=== PATIENT | female | born 1980 | race African-American/Black ===

== ENCOUNTER 2016-11-02 01:42 | Emergency (ER) | payer BC ==
[2016-11-02 01:54] VITALS: BP 123/84; PULSE 82; RESP 18; TEMP 98.6
[2016-11-02] MEDS ORDERED: AMOXICILLIN 500 MG CAP PO STA (02:11)
[2016-11-02] MEDS ORDERED: CIPROFLOXACIN-DEXAMETH 0.3-0.1% DROPS 7.5 ML BTL RIGHT EAR STA (02:12)
--- NOTE | 2016-11-02 02:19 | ED ---
ENT HPI - General Chief complaint: ENT Stated complaint: Earache Time Seen by Provider: 11/02/16 01:57 Source: patient, RN notes reviewed Mode of arrival: ambulatory Limitations: no limitations - History of Present Illness Initial comments: Patient is a 36-year-old female since emergency room for evaluation of right ear pain. Patient has been having right ear pain and fullness feeling for the past 2 days. Patient states when she was getting out of the shower today she bent forward and felt a loud pop in her right ear associated with extreme pain. Patient states she went to bed and felt something leaking down from her ear. Patient states she turned the light she noticed it was blood. Patient states at this point she thought she should have her right ear evaluated. Patient states she's having constant 3 out of 10 pain in her right ear. Patient states that she still having fullness in her right ear with decreased hearing and ringing. Patient denies fevers or chills. Patient denies trauma to her ear. Patient denies neck pain. - Related Data Home Medications Medication Instructions Recorded Confirmed HYDROcodone/APAP 10-325MG [[place] 1 tab PO Q8H PRN 11/02/16 11/02/16 10-325] Ibuprofen [Motrin] 800 mg PO BID PRN 11/02/16 11/02/16 Previous Rx's Medication Instructions Recorded Amoxicillin 500 mg PO Q8H 5 Days 11/02/16 Ciprofloxacin-Dexameth [Ciprodex 4 drops RIGHT EAR BID 10 Days 11/02/16 Otic Susp] Allergies Allergy/AdvReac Type Severity Reaction Status Date / Time paper tape Allergy Rash/Hives Uncoded 11/02/16 01:53 Review of Systems ROS Statement: Those systems with pertinent positive or pertinent negative responses have been documented in the HPI. ROS Other: All systems not noted in ROS Statement are negative. Past Medical History Past Medical History: No Reported History Additional Past Medical History / Comment(s): 05/06/15 ADMITTED TO [facility] WITH C/O LT SIDED FACIAL SWELLLING. OTHER HX: PAST ABCESS TOOTH, 2007 RT SIDED FACIAL SWELLING, pleurisy History of Any Multi-Drug Resistant Organisms: None Reported Past Surgical History: Orthopedic Surgery, Tubal Ligation Additional Past Surgical History / Comment(s): rt knee sx for fc knee cap Past Anesthesia/Blood Transfusion Reactions: Motion Sickness Past Psychological History: No Psychological Hx Reported Smoking Status: Current every day smoker Past Alcohol Use History: Occasional Additional Past Alcohol Use History / Comment(s): started smoking at age 18 , smoked 1/2 ppd, smoking cessation booklet given to pt. Past Drug Use History: None Reported - Past Family History Father Family Medical History: No Reported History Mother Family Medical History: Cancer, Hypertension Additional Family Medical History / Comment(s): breast cancer General Exam - General Exam Comments Initial Comments: Sitting in exam room in no acute distress. Limitations: no limitations General appearance: alert, in no apparent distress Head exam: Present: atraumatic, normocephalic, normal inspection Eye exam: Present: normal appearance Expanded Ear exam: Present: normal external inspection TM/Canal exam: Erythema: Right TM, Canal Discharge: Right TM, Canal Tenderness: Right TM Mouth exam: Present: normal external inspection Neck exam: Present: normal inspection, full ROM. Absent: tenderness, lymphadenopathy Respiratory exam: Absent: respiratory distress Extremities exam: Present: normal inspection Back exam: Present: normal inspection Neurological exam: Present: alert, oriented X3, CN II-XII intact, normal gait Psychiatric exam: Present: normal affect, normal mood Skin exam: Present: warm, dry, intact, normal color. Absent: rash Course Vital Signs 11/02/16 01:50 Temperature 98.6 F Pulse Rate 82 Respiratory 18 Rate Blood Pressure 123/84 O2 Sat by Pulse 98 Oximetry Medical Decision Making - Medical Decision Making Patient is a 36-year-old female presents to the emergency room for evaluation of right ear pain and drainage. Right ear examined. Tympanic membrane appears to be intact. There is some swelling and erythema of the ear canal. Because of patient's symptoms of popping and blood draining from her ear, will place patient on oral antibiotics and Ciprodex eardrops. Advised patient to follow- up with her primary care provider in 24-48 hours for reevaluation of her ear. Patient states she understands everything that was discussed with her. Return parameters discussed. Case discussed with Dr. Berry. Disposition Clinical Impression: Otitis externa Disposition: HOME SELF-CARE Condition: Good Instructions: Otitis Externa (ED) Additional Instructions: Take medications as directed. Please follow up with primary care provider in 1- 2 days for reevaluation. If any new symptom arises, symptoms worsen or fever develops, return to ER as soon as possible. Prescriptions: Amoxicillin 500 mg PO Q8H 5 Days Ciprofloxacin-Dexameth [Ciprodex Otic Susp] 4 drops RIGHT EAR BID 10 Days Referrals: Yung Cotto MD [Primary Care Provider] - 1-2 days Time of Disposition: 02:16
== END 2016-11-02 02:30 | disposition home or self-care (01) ==
LOC: EC 01:42
DX: H60.91 Unspecified otitis externa, right ear (principal); F17.200 Nicotine dependence, unspecified, uncomplicated; Z91.09 Other allergy status, other than to drugs and biological substances
CPT/HCPCS: 99282

== ENCOUNTER 2016-11-23 19:06 | Emergency (ER) | payer SELFPAY ==
[2016-11-23 19:11] VITALS: RESP 18
[2016-11-23] MEDS ORDERED: SODIUM CHLORIDE 0.9% 1,000 ML IV ONE (19:56)
[2016-11-23] MEDS ORDERED: ONDANSETRON 4 MG/2 ML VIAL IVP STA ×2 (19:56→22:06)
[2016-11-23] MEDS ORDERED: HYDROmorphone 1 MG/ML 1 ML SYRINGE IVP STA ×2 (19:57→23:15)
--- NOTE | 2016-11-23 20:00 | ED ---
Abdominal Pain HPI - General Chief Complaint: Abdominal Pain Stated Complaint: Abdominal Pain Time Seen by Provider: 11/23/16 19:44 Source: patient, RN notes reviewed Mode of arrival: ambulatory Limitations: no limitations - History of Present Illness Initial Comments: Patient is a 36-year-old female presents to the emergency room for reevaluation abdominal pain, nausea and vomiting. Patient states around 10:00 this morning she began having right upper quadrant and right lower quadrant abdominal pain. Patient states she went to have lunch and she vomited up all of her food secondary to pain. Patient states pain has been getting worse throughout the day so she thought she should come in to be evaluated. Patient states she's had tubal ligation. Patient denies any other abdominal surgeries. Patient denies fevers or chills. Patient is still feeling very nauseous. Patient states having 9 out of 10 constant throbbing pain. Patient states the pain is worse with movement. Patient denies pain or burning during urination, trouble urinating or blood in urine. Patient states the pain does radiate from the right side of her abdomen to her back. Patient denies chest pain or shortness of breath. Patient denies headache or dizziness. - Related Data Previous Rx's Medication Instructions Recorded HYDROcodone/APAP 5-325MG [[place] 1 tab PO Q6HR PRN #10 tab 11/23/16 5-325] Ibuprofen [Motrin] 800 mg PO Q6HR PRN #20 tab 11/23/16 Ondansetron Odt [Zofran Odt] 4 mg PO Q8HR PRN #12 tab 11/23/16 Allergies Allergy/AdvReac Type Severity Reaction Status Date / Time paper tape Allergy Rash/Hives Uncoded 11/23/16 19:11 Review of Systems ROS Statement: Those systems with pertinent positive or pertinent negative responses have been documented in the HPI. ROS Other: All systems not noted in ROS Statement are negative. Past Medical History Past Medical History: No Reported History Additional Past Medical History / Comment(s): pleurisy History of Any Multi-Drug Resistant Organisms: None Reported Past Surgical History: Orthopedic Surgery, Tubal Ligation Additional Past Surgical History / Comment(s): rt knee sx for fc knee cap Past Anesthesia/Blood Transfusion Reactions: Motion Sickness Past Psychological History: No Psychological Hx Reported Smoking Status: Current every day smoker Past Alcohol Use History: Occasional Additional Past Alcohol Use History / Comment(s): started smoking at age 18 , smoked 1/2 ppd, smoking cessation booklet given to pt. Past Drug Use History: None Reported - Past Family History Father Family Medical History: No Reported History Mother Family Medical History: Cancer, Hypertension Additional Family Medical History / Comment(s): breast cancer General Exam - General Exam Comments Initial Comments: Laying in exam room, no acute distress. Limitations: no limitations General appearance: alert, in no apparent distress Head exam: Present: atraumatic, normocephalic, normal inspection Eye exam: Present: normal appearance Pupils: Present: normal accommodation ENT exam: Present: normal exam Neck exam: Present: normal inspection, full ROM. Absent: tenderness, lymphadenopathy Respiratory exam: Present: normal lung sounds bilaterally. Absent: respiratory distress Cardiovascular Exam: Present: regular rate, normal rhythm, normal heart sounds GI/Abdominal exam: Present: soft, tenderness (RUQ, RLQ), normal bowel sounds. Absent: distended, guarding, rebound, rigid Extremities exam: Present: normal inspection Back exam: Present: normal inspection Neurological exam: Present: alert, oriented X3, CN II-XII intact, normal gait Psychiatric exam: Present: normal affect, normal mood Skin exam: Present: warm, dry, intact, normal color. Absent: rash Course Vital Signs 11/23/16 11/23/16 11/23/16 19:09 22:35 23:28 Temperature 98.4 F 98.2 F 98.5 F Pulse Rate 86 55 L 56 L Respiratory 18 18 18 Rate Blood Pressure 134/81 137/60 110/75 O2 Sat by Pulse 100 98 99 Oximetry Medical Decision Making - Medical Decision Making Patient is a 36-year-old female presents emergency room for evaluation of abdominal pain. Labs show nose concerning findings. Ultrasound significant for bilateral ovarian cysts. CT negative for signs of appendicitis. Discussed results with patient. Agreed to send patient home with pain medications as needed and to follow-up with her primary care provider for further evaluation. Patient states she understands everything that was discussed with her. Return parameters discussed. Case discussed with Dr. Acosta. - Lab Data Result diagrams: 11/23/16 19:47 11/23/16 19:47 Lab Results 11/23/16 11/23/16 11/23/16 Range/Units 19:47 19:47 19:47 WBC 9.7 (3.8-10.6) k/uL RBC 3.85 (3.80-5.40) m/uL Hgb 11.4 (11.4-16.0) gm/dL Hct 35.6 (34.0-46.0) % MCV 92.4 (80.0-100.0) fL MCH 29.5 (25.0-35.0) pg MCHC 32.0 (31.0-37.0) g/dL RDW 16.1 H (11.5-15.5) % Plt Count 385 (150-450) k/uL Neutrophils % 72 % Lymphocytes % 18 % Monocytes % 5 % Eosinophils % 1 % Basophils % 2 % Neutrophils # 7.0 (1.3-7.7) k/uL Lymphocytes # 1.8 (1.0-4.8) k/uL Monocytes # 0.4 (0-1.0) k/uL Eosinophils # 0.1 (0-0.7) k/uL Basophils # 0.2 (0-0.2) k/uL Hypochromasia Slight Anisocytosis Slight Sodium 146 H (137-145) mmol/L Potassium 3.9 (3.5-5.1) mmol/L Chloride 108 H (98-107) mmol/L Carbon Dioxide 25 (22-30) mmol/L Anion Gap 13 mmol/L BUN 14 (7-17) mg/dL Creatinine 0.66 (0.52-1.04) mg/dL Est GFR (MDRD) Af Amer >60 (>60 ml/min/1.73 sqM) Est GFR (MDRD) Non-Af >60 (>60 ml/min/1.73 sqM) Glucose 99 (74-99) mg/dL Calcium 9.5 (8.4-10.2) mg/dL Magnesium 1.9 (1.6-2.3) mg/dL Total Bilirubin 0.5 (0.2-1.3) mg/dL AST 14 (14-36) U/L ALT 17 (9-52) U/L Alkaline Phosphatase 47 (38-126) U/L Total Protein 7.3 (6.3-8.2) g/dL Albumin 4.3 (3.5-5.0) g/dL Amylase 68 (30-110) U/L Lipase 95 (23-300) U/L Urine Color Urine Appearance (Clear) Urine pH (5.0-8.0) Ur Specific [place] (1.001-1.035) Urine Protein (Negative) Urine Glucose (UA) (Negative) Urine Ketones (Negative) Urine Blood (Negative) Urine Nitrate (Negative) Urine Bilirubin (Negative) Urine Urobilinogen (<2.0) mg/dL Ur Leukocyte Esterase (Negative) Urine WBC (0-5) /hpf Ur Squamous Epith Cells (0-4) /hpf Amorphous Sediment (None) /hpf Urine Mucus (None) /hpf Urine Sperm (None) /hpf Urine HCG, Qual Not Detected (Not Detectd) 11/23/16 Range/Units 19:47 WBC (3.8-10.6) k/uL RBC (3.80-5.40) m/uL Hgb (11.4-16.0) gm/dL Hct (34.0-46.0) % MCV (80.0-100.0) fL MCH (25.0-35.0) pg MCHC (31.0-37.0) g/dL RDW (11.5-15.5) % Plt Count (150-450) k/uL Neutrophils % % Lymphocytes % % Monocytes % % Eosinophils % % Basophils % % Neutrophils # (1.3-7.7) k/uL Lymphocytes # (1.0-4.8) k/uL Monocytes # (0-1.0) k/uL Eosinophils # (0-0.7) k/uL Basophils # (0-0.2) k/uL Hypochromasia Anisocytosis Sodium (137-145) mmol/L Potassium (3.5-5.1) mmol/L Chloride (98-107) mmol/L Carbon Dioxide (22-30) mmol/L Anion Gap mmol/L BUN (7-17) mg/dL Creatinine (0.52-1.04) mg/dL Est GFR (MDRD) Af Amer (>60 ml/min/1.73 sqM) Est GFR (MDRD) Non-Af (>60 ml/min/1.73 sqM) Glucose (74-99) mg/dL Calcium (8.4-10.2) mg/dL Magnesium (1.6-2.3) mg/dL Total Bilirubin (0.2-1.3) mg/dL AST (14-36) U/L ALT (9-52) U/L Alkaline Phosphatase (38-126) U/L Total Protein (6.3-8.2) g/dL Albumin (3.5-5.0) g/dL Amylase (30-110) U/L Lipase (23-300) U/L Urine Color Yellow Urine Appearance Cloudy H (Clear) Urine pH 6.0 (5.0-8.0) Ur Specific [place] 1.022 (1.001-1.035) Urine Protein Trace H (Negative) Urine Glucose (UA) Negative (Negative) Urine Ketones Negative (Negative) Urine Blood Negative (Negative) Urine Nitrate Negative (Negative) Urine Bilirubin Negative (Negative) Urine Urobilinogen 2.0 (<2.0) mg/dL Ur Leukocyte Esterase Negative (Negative) Urine WBC 3 (0-5) /hpf Ur Squamous Epith Cells 18 H (0-4) /hpf Amorphous Sediment Rare H (None) /hpf Urine Mucus Occasional H (None) /hpf Urine Sperm Few H (None) /hpf Urine HCG, Qual (Not Detectd) - Radiology Data Radiology results: report reviewed, image reviewed Disposition Clinical Impression: Ovarian cyst, Abdominal pain Disposition: HOME SELF-CARE Condition: Good Instructions: Ovarian Cyst (ED) Additional Instructions: Take medications as needed. Please follow up with primary care provider in 24- 48 hours for reevaluation. If any new symptom arises or symptoms worsen, return to ER as soon as possible. Prescriptions: HYDROcodone/APAP 5-325MG [[place] 5-325] 1 tab PO Q6HR PRN #10 tab PRN Reason: Pain Ibuprofen [Motrin] 800 mg PO Q6HR PRN #20 tab PRN Reason: Pain Ondansetron Odt [Zofran Odt] 4 mg PO Q8HR PRN #12 tab PRN Reason: Nausea Referrals: Yung Cotto MD [Primary Care Provider] - 1-2 days Time of Disposition: 23:10
[2016-11-23 20:13] LABS: Anisocytosis Slight; Basophils # (A) 0.2 k/uL (0-0.2); Basophils % (A) 2 %; CH 29.1; CHCM 31.7; Eosinophils # (A) 0.1 k/uL (0-0.7); Eosinophils % (A) 1 %; HCT 35.6 % (34.0-46.0); HDW 2.67; HGB 11.4 gm/dL (11.4-16.0); Hypochromasia Slight; Luc # (Auto) 0.21; Luc % (Auto) 2; Lymphocytes # (A) 1.8 k/uL (1.0-4.8); Lymphocytes % (A) 18 %; MCH 29.5 pg (25.0-35.0); MCV 92.4 fL (80.0-100.0); Mean Platelet Volume 7.4; Monocytes # (A) 0.4 k/uL (0-1.0); Monocytes % (A) 5 %; Neutrophils % (A) 72 %; RBC 3.85 m/uL (3.80-5.40); RDW 16.1 % (11.5-15.5); WBC 9.7 k/uL (3.8-10.6); WBC (Perox) 9.71
[2016-11-23 20:19] LABS: Amorphous Sediment,Urine Rare /hpf; Appearance,Urine Cloudy (Clear); Bilirubin,Urine Negative (Negative); Glucose,Urine (UA) Negative (Negative); Ketones,Urine Negative (Negative); Leukocyte Esterase,Urine Negative (Negative); Mucus,Urine Occasional /hpf; Nitrite,Urine Negative (Negative); Particle Count 5864; Protein,Urine Trace (Negative); Specific Gravity,Urine 1.022 (1.001-1.035); Sperm,Urine Few /hpf; Squamous Epithelial Cell,Urine 18 /hpf (0-4); UA Billing (MACRO vs. MICRO) MICRO; WBC,Urine 3 /hpf (0-5)
[2016-11-23 20:23] LABS: ALT 17 U/L (9-52); AST 14 U/L (14-36); Alkaline Phosphatase 47 U/L (38-126); Amylase 68 U/L (30-110); Anion Gap 13 mmol/L; Blood Urea Nitrogen 14 mg/dL (7-17); Calcium 9.5 mg/dL (8.4-10.2); Carbon Dioxide 25 mmol/L (22-30); Chloride 108 mmol/L (98-107); Glucose 99 mg/dL (74-99); Magnesium 1.9 mg/dL (1.6-2.3); Non-African American GFR(MDRD) >60 (>60 ml/min/1.73 sqM); Potassium 3.9 mmol/L (3.5-5.1); Sodium 146 mmol/L (137-145); Total Bilirubin 0.5 mg/dL (0.2-1.3); Total Protein 7.3 g/dL (6.3-8.2)
--- NOTE | 2016-11-23 20:53 | XR ---
EXAMINATION TYPE: XR KUB DATE OF EXAM: 11/23/2016 8:35 PM COMPARISON: NONE HISTORY: Abdominal pain TECHNIQUE: 2 views FINDINGS: Bowel gas pattern is normal. There is no sign of intestinal obstruction or pneumoperitoneum . Fecal pattern is normal. There are clips in the pelvis on the left side. There are no pathologic ca lcifications over the kidneys. Lung bases are clear. IMPRESSION: Nonacute abdomen.
--- NOTE | 2016-11-23 21:44 | US ---
EXAMINATION TYPE: US abdomen APPY DATE OF EXAM: 11/23/2016 9:25 PM COMPARISON: NONE CLINICAL HISTORY: Pain. APPENDIX AP Diameter (normal < 6mm): Not visualized on this exam Measured outer wall to outer wall. Is the appendix seen in its entirety from the proximal cecum to distal end: No TECHNOLOGIST IMPRESSION: Non-visualization of the appendix due to large amount of overlying bowel IMPRESSION: We did not demonstrate the appendix. No solid or cystic mass identified.
[2016-11-23] MEDS ORDERED: KETOROLAC 30 MG/ML 1 ML VIAL IVP STA (21:54)
--- NOTE | 2016-11-23 21:57 | US ---
EXAMINATION TYPE: US transvaginal DATE OF EXAM: 11/23/2016 9:38 PM COMPARISON: Prior US and CT in PACS CLINICAL HISTORY: Pain. RLQ pain TECHNIQUE: Transvaginal (TV) Date of LMP: 11/03/2016 EXAM MEASUREMENTS: Uterus: 10.4 x 4.8 x 5.6 cm Endometrial Stripe: 0.9 cm Right Ovary: 4.2 x 2.2 x 2.3 cm Left Ovary: 2.9 x 2.5 x 2.7 cm TECHNOLOGIST IMPRESSION: 1. Uterus: Tiny nabothian cyst visualized within cervix 2. Endometrium: wnl 3. Right Ovary: Complex cystic area visualized measuring 2.2 x 2.0 x 2.0 cm 4. Left Ovary: Complex cystic area visualized measuring 2.2 x 2.0 x 1.9 cm Spectral, color and waveform doppler imaging shows good arterial and venous flow within the ovaries ; there is no evidence for ovarian torsion. 5. Bilateral Adnexa: wnl 6. Posterior cul-de-sac: wnl There is normal arterial waveform in the origin arteries on the color Doppler images. IMPRESSION: Complex 2 cm ovarian cysts bilaterally. Normal uterus and endometrium.
[2016-11-23] MEDS ORDERED: RX INFO: IV CONTRAST WAS GIVEN 1 EACH MISC MISCELLANE PRN (22:04)
--- NOTE | 2016-11-23 22:36 | CT ---
EXAMINATION TYPE: CT abdomen pelvis w con DATE OF EXAM: 11/23/2016 10:27 PM COMPARISON: 05/01/2015 HISTORY: Right lower quadrant pain CT DLP: mGycm Automated exposure control for dose reduction was used. TECHNIQUE: Helical acquisition of images was performed from the lung bases through the pelvis. CONTRAST: Omnipaque 100 mL FINDINGS: Lung bases are clear. There is no pleural effusion. Heart size is normal. Liver spleen pancreas gallbladder appear normal. Bile ducts are not dilated. There is no adrenal mass . Kidneys show satisfactory contrast opacification. There is no hydronephrosis. There is no retroperi toneal adenopathy. There is no ascites. Bladder distends smoothly. There is no sign of a pelvic mass. There is no sign of appendicitis. Bony structures are intact. I see no intestinal wall thickening. T here are no dilated loops. IMPRESSION: NEGATIVE CT SCAN OF THE ABDOMEN AND PELVIS. NO CHANGE COMPARED TO OLD EXAM.
[2016-11-23 23:28] VITALS: BP 110/75; PULSE 56; TEMP 98.5
== END 2016-11-23 23:43 | disposition home or self-care (01) ==
LOC: EC 19:06
DX: N83.202 Unspecified ovarian cyst, left side (principal); N83.201 Unspecified ovarian cyst, right side; F17.200 Nicotine dependence, unspecified, uncomplicated; Z91.048 Other nonmedicinal substance allergy status
CPT/HCPCS: 99284 ×2; 96374 ×2; 96375 ×3; 96376 ×3; 96361 ×2; 36415; 80053; 82150; 83690; 83735; 85025; 81001; 81025; 74000; 93975; 76705; 76830; 74177; J2405; J1885; J1170; Q9967

== ENCOUNTER → 2017-01-28 | Outpatient (CLI) | payer SELFPAY ==
--- NOTE | 2017-01-29 12:41 | MM ---
Reason for exam: clinical finding. Last mammogram was performed 1 year and 8 months ago. History: Family history of breast cancer in maternal grandmother at age 60, breast cancer in maternal aunt at age 42, breast cancer in maternal aunt at age 50, and breast cancer in maternal cousin at age 35. Physical Findings: Nurse did not find any significant physical abnormalities on exam. MG Diagnostic Mammo w CAD AMPARO Bilateral CC and MLO view(s) were taken. XCCL view(s) were taken of the right breast. Prior study comparison: May 20, 2015, bilateral MG diagnostic mammo w CAD AMPARO. The breast tissue is heterogeneously dense. This may lower the sensitivity of mammography. These results were verbally communicated with the patient and result sheet given to the patient on 01/28/17. ASSESSMENT: Incomplete: need additional imaging evaluation, BI-RAD 0 RECOMMENDATION: Ultrasound of both breasts.
--- NOTE | 2017-01-29 12:46 | USB ---
Reason for exam: additional evaluation requested from abnormal screening. History: Family history of breast cancer in maternal grandmother at age 60, breast cancer in maternal aunt at age 42, breast cancer in maternal aunt at age 50, and breast cancer in maternal cousin at age 35. US Breast BILAT Left breast ultrasound includes all four quadrants, the retroareolar region and axilla. Finding demonstrates a 0.3 x 0.3 x 0.2cm oval lesion too small to characterize at 1 o'clock, a 0.5 x 0.3 x 0.2cm oval lesion too small to characterize at 3 o'clock and a 0.9 x 1.1 x 0.3cm oval, hypoechoic lesion at 5 o'clock for which a core biopsy is recommended. These results were verbally communicated with the patient and result sheet given to the patient on 01/28/17. ASSESSMENT: Suspicious, BI-RAD 4 RECOMMENDATION: Ultrasound core biopsy of the left breast. Called Dr. Cotto with mammographic findings and has scheduled an appointment for the patient for 03/03/17 at 2:[address] Watters. Biposy scheduled for 02/09/17 at 12:20. PRELIMINARY REPORT CALLED AND FAXED TO DR. WATTERS ON 01/29/17 AT 300/TP.
== END | disposition home or self-care (01) ==
LOC: RADMAMWWP 08:10
PROVIDERS: ATTEND Family Medicine
DX: N63 Unspecified lump in breast (principal); N64.4 Mastodynia; R92.8 Other abnormal and inconclusive findings on diagnostic imaging of breast
CPT/HCPCS: 76641; G0204

== ENCOUNTER → 2017-02-09 | Day surgery (SDC) | payer BC ==
[~2017-02-09] MED LIST: ALPRAZolam 0.25 MG TAB ONE; BACITRACIN OINT 1 EACH PACKET TOPICAL ONE; LIDOCAINE 1% INJ 10MG/ML (20 ML MDV) ONE
--- NOTE | 2017-02-09 15:24 | USB ---
EXAMINATION TYPE: US biopsy breast VAD LT DATE OF EXAM: 02/09/2017 12:52 PM CLINICAL HISTORY: R92.8 ABN MAMMOGRAM. TECHNIQUE: Ultrasound guided core biopsy of left breast. COMPARISON: Prior ultrasound breast 28 Jan 2017 FINDINGS: The procedure of ultrasound guided core biopsy was explained to the patient. Benefits, alternatives, and risks were discussed. An informed consent was then obtained. The patient was placed in supine positioning for imaging and for the procedure. The overlying skin was prepped and draped in usual sterile fashion. Lidocaine was used as anesthetic into the skin and subcutaneous tissue up to area of concern in the left breast. Under ultrasound guidance, a 13-gauge vacuum assisted core biopsy device was used to obtain 3 core samples. Following this, a biopsy clip was left in lesion. The patient tolerated the procedure well without any immediate complication. The patient was kept in the radiology department for short stay after the procedure and then discharged home in stable condition. Postprocedure digital mammogram was performed. Lesion was located 5:00 left breast IMPRESSION: Successful, uncomplicated ultrasound guided core biopsy of area of concern in the left breast, full pathology results to follow. Pathology Results: Benign BREAST, LEFT 5 O'CLOCK, CORE BIOPSY: FIBROCYSTIC CHANGES INCLUDING FIBROSIS, FIBROADENOMATOID HYPERPLASIA AND CYSTS. Recommendation Follow up mammogram of the left breast in 6 months. KAYLEEN
--- NOTE | 2017-02-10 08:55 | MM ---
Reason for exam: additional evaluation requested from abnormal screening. Last mammogram was performed less than 1 month ago. History: Family history of breast cancer in maternal grandmother at age 60, breast cancer in maternal aunt at age 42, breast cancer in maternal aunt at age 50, and breast cancer in maternal cousin at age 35. MG Diagnostic Mammo LT Wo CAD CC and LM view(s) were taken of the left breast. Prior study comparison: January 28, 2017, bilateral MG diagnostic mammo w CAD AMPARO. May 20, 2015, bilateral MG diagnostic mammo w CAD AMPARO. ASSESSMENT: Post procedure mammogram for marker placement RECOMMENDATION: Ultrasound of the left breast in 6 months. PENDING PATHOLOGY RESULTS.
== END ==
LOC: RADUSWWP 11:29
PROVIDERS: ATTEND Surgery
DX: N60.12 Diffuse cystic mastopathy of left breast (principal); N62 Hypertrophy of breast; R92.8 Other abnormal and inconclusive findings on diagnostic imaging of breast; Z80.3 Family history of malignant neoplasm of breast
CPT/HCPCS: 88305; 19083; G0206; A4648; J2001

== ENCOUNTER 2017-07-04 20:01 | Emergency (ER) | payer BC ==
[2017-07-04] MEDS ORDERED: IPRATROPIUM-ALBUTEROL 3 ML NEB INHALATION STA (20:14)
[2017-07-04] MEDS ORDERED: SODIUM CHLORIDE 0.9% 1,000 ML IV ONE (20:14)
[2017-07-04] MEDS ORDERED: ONDANSETRON 4 MG/2 ML VIAL IVP STA (20:14)
--- NOTE | 2017-07-04 20:14 | ED ---
General Adult HPI - General Chief complaint: Abdominal Pain Stated complaint: Vomiting Source: patient Mode of arrival: ambulatory Limitations: no limitations - History of Present Illness Initial comments: Junie is a 37-year-old female with no significant past medical history who presents to the emergency department for evaluation of cough, nausea and vomiting. Patient reports that approximately 2 weeks ago she developed nausea and nonbloody nonbilious vomiting. She reports that she was evaluated and prescribed Zofran which helped transiently. Patient reports that over the past few days she has developed a minimally productive cough. She reports that she' s having coughing spells are so severe she has posttussive emesis. She reports that her coughing has been so severe that she has not been able to smoke cigarettes. She states she has had only one cigarette in the past 3 days. Patient describes the cough as minimally productive of clear yellow sputum. She denies any chest pain or shortness of breath. She reports that after coughing she occasionally has episodes of nonbloody nonbilious emesis. She states that she feels like she cannot eat or drink much and fear that she will have a vomiting episode. She reports she's had no abdominal pain though she does feel constipated though she attributes this to having decreased by mouth intake. She reports she doesn' t feel very nauseated though she does have fear of eating because of the fear of vomiting and. - Related Data Home Medications Medication Instructions Recorded Confirmed HYDROcodone/APAP 10-325MG [[place] 1 tab PO Q6H PRN 07/04/17 07/04/17 10-325] Previous Rx's Medication Instructions Recorded Ibuprofen [Motrin] 800 mg PO Q6HR PRN #20 tab 11/23/16 Ondansetron Odt [Zofran Odt] 4 mg PO Q8HR PRN #12 tab 11/23/16 Albuterol Inhaler [Ventolin Hfa 1 - 2 puff INHALATION Q6HR PRN #1 07/04/17 Inhaler] inhaler predniSONE 50 mg PO DAILY #5 tablet 07/04/17 Allergies Allergy/AdvReac Type Severity Reaction Status Date / Time paper tape Allergy Rash/Hives Uncoded 07/04/17 20:05 Review of Systems ROS Statement: Those systems with pertinent positive or pertinent negative responses have been documented in the HPI. ROS Other: All systems not noted in ROS Statement are negative. Constitutional: Denies: fever, chills ENT: Denies: throat pain Respiratory: Reports: cough, wheezes. Denies: dyspnea Cardiovascular: Denies: chest pain, palpitations, dyspnea on exertion, edema Endocrine: Reports: fatigue Gastrointestinal: Reports: vomiting, constipation. Denies: abdominal pain, nausea, diarrhea Genitourinary: Denies: urgency, dysuria Musculoskeletal: Denies: back pain Skin: Denies: rash, lesions Neurological: Denies: headache Psychiatric: Denies: anxiety, depression Hematological/Lymphatic: Denies: easy bleeding, easy bruising Past Medical History Past Medical History: No Reported History Additional Past Medical History / Comment(s): pleurisy History of Any Multi-Drug Resistant Organisms: None Reported Past Surgical History: Orthopedic Surgery, Tubal Ligation Additional Past Surgical History / Comment(s): rt knee sx for fc knee cap Past Anesthesia/Blood Transfusion Reactions: Motion Sickness Past Psychological History: No Psychological Hx Reported Smoking Status: Current every day smoker Past Alcohol Use History: Occasional Past Drug Use History: None Reported - Past Family History Father Family Medical History: No Reported History Mother Family Medical History: Cancer, Hypertension Additional Family Medical History / Comment(s): breast cancer General Exam Limitations: no limitations General appearance: alert, in no apparent distress Head exam: Present: atraumatic, normocephalic Eye exam: Present: normal appearance ENT exam: Present: normal exam Neck exam: Present: normal inspection Respiratory exam: Present: wheezes. Absent: respiratory distress Cardiovascular Exam: Present: regular rate, normal rhythm GI/Abdominal exam: Present: soft. Absent: distended, tenderness, guarding Rectal exam: Present: deferred Extremities exam: Present: normal inspection, full ROM Back exam: Present: normal inspection Neurological exam: Present: alert, oriented X3 Psychiatric exam: Present: normal affect, normal mood Skin exam: Present: warm, dry, intact Course Vital Signs 07/04/17 07/04/17 07/04/17 20:02 20:48 21:00 Temperature 99.2 F Pulse Rate 85 88 92 Respiratory 16 Rate Blood Pressure 141/87 O2 Sat by Pulse 98 Oximetry Medical Decision Making - Medical Decision Making Patient was seen and evaluated, history was obtained from the patient Signs were reviewed Labs and DuoNeb were ordered Patient reported feeling better after breathing treatment, wheezing decreased X-ray with no evidence of acute pneumonia I discussed with the patient that that she likely has a bronchitis I discussed with her that smoking will worsen and prolong her symptoms. I discussed that smoking cessation can result in a transient increase of the cough due to crease activity of the cilia in the lungs. Patient expressed understanding of this. She states she plans to not start smoking again. Advised the patient I will discharge her home with by mouth steroids and she can continue taking Zofran as needed for nausea. Advised patient to follow up with her primary care physician or return to the emergency department for any new or concerning symptoms. All questions pertaining to care were answered to the best of my ability and the patient was discharged home in stable condition - Lab Data Result diagrams: 07/04/17 20:15 07/04/17 20:15 Lab Results 07/04/17 07/04/17 07/04/17 Range/Units 20:15 20:15 20:15 WBC 8.1 (3.8-10.6) k/uL RBC 4.16 (3.80-5.40) m/uL Hgb 11.8 (11.4-16.0) gm/dL Hct 37.4 (34.0-46.0) % MCV 90.0 (80.0-100.0) fL MCH 28.4 (25.0-35.0) pg MCHC 31.6 (31.0-37.0) g/dL RDW 17.6 H (11.5-15.5) % Plt Count 327 (150-450) k/uL Neutrophils % 62 % Lymphocytes % 28 % Monocytes % 5 % Eosinophils % 2 % Basophils % 1 % Neutrophils # 5.0 (1.3-7.7) k/uL Lymphocytes # 2.3 (1.0-4.8) k/uL Monocytes # 0.4 (0-1.0) k/uL Eosinophils # 0.2 (0-0.7) k/uL Basophils # 0.1 (0-0.2) k/uL Anisocytosis Slight Sodium 139 (137-145) mmol/L Potassium 4.6 (3.5-5.1) mmol/L Chloride 106 (98-107) mmol/L Carbon Dioxide 23 (22-30) mmol/L Anion Gap 10 mmol/L BUN 17 (7-17) mg/dL Creatinine 0.70 (0.52-1.04) mg/dL Est GFR (MDRD) Af Amer >60 (>60 ml/min/1.73 sqM) Est GFR (MDRD) Non-Af >60 (>60 ml/min/1.73 sqM) Glucose 90 (74-99) mg/dL Calcium 9.9 (8.4-10.2) mg/dL Total Bilirubin 0.1 L (0.2-1.3) mg/dL AST 18 (14-36) U/L ALT 34 (9-52) U/L Alkaline Phosphatase 64 (38-126) U/L Total Protein 6.6 (6.3-8.2) g/dL Albumin 3.7 (3.5-5.0) g/dL Urine Color Light Yellow Urine Appearance Cloudy H (Clear) Urine pH 6.5 (5.0-8.0) Ur Specific Story 1.012 (1.001-1.035) Urine Protein Negative (Negative) Urine Glucose (UA) Negative (Negative) Urine Ketones Negative (Negative) Urine Blood Negative (Negative) Urine Nitrite Negative (Negative) Urine Bilirubin Negative (Negative) Urine Urobilinogen <2.0 (<2.0) mg/dL Ur Leukocyte Esterase Small H (Negative) Urine RBC 1 (0-5) /hpf Urine WBC 2 (0-5) /hpf Ur Squamous Epith Cells 6 H (0-4) /hpf Disposition Clinical Impression: Bronchitis, Nausea and vomiting Disposition: HOME SELF-CARE Condition: Good Instructions: Acute Bronchitis (ED), How Your Lungs Work (ED) Prescriptions: Albuterol Inhaler [Ventolin Hfa Inhaler] 1 - 2 puff INHALATION Q6HR PRN #1 inhaler PRN Reason: Cough predniSONE 50 mg PO DAILY #5 tablet Referrals: Yung Cotto MD [Primary Care Provider] - 1-2 days
[2017-07-04 20:41] LABS: Anisocytosis Slight; Basophils # (A) 0.1 k/uL (0-0.2); Basophils % (A) 1 %; CH 29.1; CHCM 32.5; Eosinophils # (A) 0.2 k/uL (0-0.7); Eosinophils % (A) 2 %; HCT 37.4 % (34.0-46.0); HDW 2.69; HGB 11.8 gm/dL (11.4-16.0); Luc # (Auto) 0.19; Luc % (Auto) 2; Lymphocytes # (A) 2.3 k/uL (1.0-4.8); Lymphocytes % (A) 28 %; MCH 28.4 pg (25.0-35.0); MCHC 31.6 g/dL (31.0-37.0); Mean Platelet Volume 7.5; Monocytes # (A) 0.4 k/uL (0-1.0); Monocytes % (A) 5 %; Neutrophils % (A) 62 %; RBC 4.16 m/uL (3.80-5.40); RDW 17.6 % (11.5-15.5); WBC 8.1 k/uL (3.8-10.6); WBC (Perox) 8.24
[2017-07-04 20:48] LABS: Appearance,Urine Cloudy (Clear); Bilirubin,Urine Negative (Negative); Glucose,Urine (UA) Negative (Negative); Ketones,Urine Negative (Negative); Leukocyte Esterase,Urine Small (Negative); Nitrite,Urine Negative (Negative); PH, Urine 6.5 (5.0-8.0); Particle Count 2733; Protein,Urine Negative (Negative); RBC,Urine 1 /hpf (0-5); Specific Gravity,Urine 1.012 (1.001-1.035); Squamous Epithelial Cell,Urine 6 /hpf (0-4); UA Billing (MACRO vs. MICRO) MICRO; Urobilinogen,Urine <2.0 mg/dL (<2.0); WBC,Urine 2 /hpf (0-5)
[2017-07-04 20:52] LABS: ALT 34 U/L (9-52); AST 18 U/L (14-36); Alkaline Phosphatase 64 U/L (38-126); Anion Gap 10 mmol/L; Blood Urea Nitrogen 17 mg/dL (7-17); Calcium 9.9 mg/dL (8.4-10.2); Carbon Dioxide 23 mmol/L (22-30); Chloride 106 mmol/L (98-107); Glucose 90 mg/dL (74-99); Non-African American GFR(MDRD) >60 (>60 ml/min/1.73 sqM); Potassium 4.6 mmol/L (3.5-5.1); Sodium 139 mmol/L (137-145); Total Bilirubin 0.1 mg/dL (0.2-1.3); Total Protein 6.6 g/dL (6.3-8.2)
--- NOTE | 2017-07-04 21:06 | XR ---
EXAMINATION TYPE: XR chest 2V DATE OF EXAM: 07/04/2017 COMPARISON: Chest x-ray November 21, 2015 HISTORY: Fever and cough TECHNIQUE: Frontal and lateral views of the chest are obtained. FINDINGS: There is no focal air space opacity, pleural effusion, or pneumothorax seen. The cardiac silhouette size is within normal limits. The osseous structures are intact. IMPRESSION: No suspicious acute pulmonary process.
[2017-07-04 21:42] VITALS: BP 125/62; PULSE 81; RESP 18; TEMP 98.6
== END 2017-07-04 21:42 | disposition home or self-care (01) ==
LOC: EC 20:01
DX: J40 Bronchitis, not specified as acute or chronic (principal); R11.2 Nausea with vomiting, unspecified; F17.210 Nicotine dependence, cigarettes, uncomplicated; Z91.048 Other nonmedicinal substance allergy status
CPT/HCPCS: 36415; 94640; 80053; 85025; 81001; 71020; 99284; 96374; 96361; J2405

== ENCOUNTER 2017-12-09 15:27 | Emergency (ER) | payer BC ==
[2017-12-09] MEDS ORDERED: SODIUM CHLORIDE 0.9% 500 ML IV STA (16:33)
[2017-12-09] MEDS ORDERED: KETOROLAC 30 MG/ML 1 ML VIAL IVP STA (16:33)
[2017-12-09 16:58] LABS: Anisocytosis Slight; Basophils % (A) 0 %; Eosinophils # (A) 0.1 k/uL (0-0.7); Eosinophils % (A) 1 %; HCT 35.6 % (34.0-46.0); HGB 11.7 gm/dL (11.4-16.0); Lymphocytes # (A) 1.4 k/uL (1.0-4.8); Lymphocytes % (A) 12 %; MCH 26.5 pg (25.0-35.0); MCHC 32.9 g/dL (31.0-37.0); MCV 80.4 fL (80.0-100.0); Mean Platelet Volume 7.3; Monocytes # (A) 0.6 k/uL (0-1.0); Monocytes % (A) 5 %; Neutrophils # (A) 9.2 k/uL (1.3-7.7); Neutrophils % (A) 81 %; Platelet Count 505 k/uL (150-450); RBC 4.43 m/uL (3.80-5.40); RDW 16.7 % (11.5-15.5); WBC 11.4 k/uL (3.8-10.6)
[2017-12-09 17:14] LABS: ALT 27 U/L (9-52); AST 21 U/L (14-36); Albumin 4.4 g/dL (3.5-5.0); Alkaline Phosphatase 82 U/L (38-126); Anion Gap 14 mmol/L; Blood Urea Nitrogen 11 mg/dL (7-17); Calcium 10.4 mg/dL (8.4-10.2); Carbon Dioxide 25 mmol/L (22-30); Chloride 105 mmol/L (98-107); Glucose 109 mg/dL (74-99); Potassium 4.5 mmol/L (3.5-5.1); Sodium 144 mmol/L (137-145); Total Bilirubin 0.3 mg/dL (0.2-1.3); Total Protein 7.7 g/dL (6.3-8.2)
--- NOTE | 2017-12-09 17:19 | ED ---
General Adult HPI - General Chief complaint: Upper Respiratory Infection Stated complaint: congestion/chest pain Time Seen by Provider: 12/09/17 16:27 Source: patient, RN notes reviewed Mode of arrival: ambulatory Limitations: no limitations - History of Present Illness Initial comments: 37-year-old female presents to the emergency department with a chief complaint of cough with left-sided chest discomfort. She states she takes a deep breath she noticed pain to the left side of her chest. She states she's also had a cough with congestion. She denies any fever chills. She states that she is a smoker. She states that she does have a history of pleurisy in the past that felt similar to this. She has any long trips or travel any hormone use. She denies any nausea vomiting. She was concerned due to her discomfort so she thought that she should be seen.Patient denies any recent fever, chills, shortness of breath, back pain, abdominal pain, nausea vomiting, numbness or tingling, dysuria or hematuria, constipation or diarrhea, headaches or visual changes, or any other current symptoms. - Related Data Home Medications Medication Instructions Recorded Confirmed HYDROcodone/APAP 10-325MG [[place] 1 tab PO Q6H PRN 07/04/17 12/09/17 10-325] Naproxen [Naprosyn] 500 mg PO Q12HR PRN 12/09/17 12/09/17 Previous Rx's Medication Instructions Recorded Ibuprofen [Motrin] 800 mg PO Q6HR PRN #20 tab 11/23/16 predniSONE 50 mg PO DAILY #5 tab 12/09/17 Allergies Allergy/AdvReac Type Severity Reaction Status Date / Time paper tape Allergy Unknown Rash/Hives Uncoded 12/09/17 17:15 Review of Systems ROS Statement: Those systems with pertinent positive or pertinent negative responses have been documented in the HPI. ROS Other: All systems not noted in ROS Statement are negative. Past Medical History Past Medical History: No Reported History Additional Past Medical History / Comment(s): pleurisy History of Any Multi-Drug Resistant Organisms: None Reported Past Surgical History: Breast Surgery, Orthopedic Surgery, Tubal Ligation Additional Past Surgical History / Comment(s): rt knee sx for fc knee cap Past Anesthesia/Blood Transfusion Reactions: Motion Sickness Past Psychological History: No Psychological Hx Reported Smoking Status: Current every day smoker Past Alcohol Use History: Occasional Past Drug Use History: None Reported - Past Family History Father Family Medical History: No Reported History Mother Family Medical History: Cancer, Hypertension Additional Family Medical History / Comment(s): breast cancer General Exam - General Exam Comments Initial Comments: General: The patient is awake and alert, in no distress, and does not appear acutely ill. Eye: Pupils are equal, round and reactive to light, extra-ocular movements are intact; there is normal conjunctiva bilaterally. No signs of icterus. Ears, nose, mouth and throat: There are moist mucous membranes and no oral lesions. Neck: The neck is supple, there is no tenderness. Cardiovascular: There is a regular rate and rhythm. No murmur, rub or gallop is appreciated. Respiratory: Lungs are clear to auscultation, respirations are non-labored, breath sounds are equal. No wheezes, stridor, rales, or rhonchi. Gastrointestinal: Soft, non-distended, non-tender abdomen without masses or organomegaly noted. There is no rebound or guarding present. No CVA tenderness. Bowel sounds are unremarkable. Back: There is no tenderness to palpation in the midline. There is no obvious deformity. No rashes noted. Musculoskeletal: Normal ROM, no tenderness, There is no pedal edema. There is no calf tenderness or swelling. Sensation intact. Pulses equal bilaterally 2+. Neurological: CN II-XII intact, There are no obvious motor or sensory deficits. Coordination appears grossly intact. Speech is normal. Skin: Skin is warm and dry and no rashes or lesions are noted. Psychiatric: Cooperative, appropriate mood & affect, normal judgment. Limitations: no limitations Course Vital Signs 12/09/17 12/09/17 12/09/17 15:51 16:49 17:03 Temperature 97.4 F L Pulse Rate 104 H 83 Respiratory 18 20 19 Rate Blood Pressure 122/81 117/74 O2 Sat by Pulse 99 99 Oximetry Medical Decision Making - Medical Decision Making 37-year-old female presents for cough and congestion-like symptoms. At this time patient's x-rays reviewed and negative and lab work is been reviewed. This and we discussed most likely pleurisy-type symptoms again. We discussed we 'll put her on some steroids. We did educate about smoking. We discussed return parameters and follow-up and all questions. Patient stated that she understood and she is agreement this plan. All questions have been answered. She will be discharged. - Lab Data Result diagrams: 12/09/17 16:41 12/09/17 16:41 Lab Results 12/09/17 12/09/17 12/09/17 Range/Units 16:41 16:41 16:41 WBC 11.4 H (3.8-10.6) k/uL RBC 4.43 (3.80-5.40) m/uL Hgb 11.7 (11.4-16.0) gm/dL Hct 35.6 (34.0-46.0) % MCV 80.4 (80.0-100.0) fL MCH 26.5 (25.0-35.0) pg MCHC 32.9 (31.0-37.0) g/dL RDW 16.7 H (11.5-15.5) % Plt Count 505 H (150-450) k/uL Neutrophils % 81 % Lymphocytes % 12 % Monocytes % 5 % Eosinophils % 1 % Basophils % 0 % Neutrophils # 9.2 H (1.3-7.7) k/uL Lymphocytes # 1.4 (1.0-4.8) k/uL Monocytes # 0.6 (0-1.0) k/uL Eosinophils # 0.1 (0-0.7) k/uL Basophils # 0.0 (0-0.2) k/uL Anisocytosis Slight D-Dimer 0.50 (<0.60) mg/L FEU Sodium 144 (137-145) mmol/L Potassium 4.5 (3.5-5.1) mmol/L Chloride 105 (98-107) mmol/L Carbon Dioxide 25 (22-30) mmol/L Anion Gap 14 mmol/L BUN 11 (7-17) mg/dL Creatinine 0.60 (0.52-1.04) mg/dL Est GFR (CKD-EPI)AfAm >90 (>60 ml/min/1.73 sqM) Est GFR (CKD-EPI)NonAf >90 (>60 ml/min/1.73 sqM) Glucose 109 H (74-99) mg/dL Calcium 10.4 H (8.4-10.2) mg/dL Total Bilirubin 0.3 (0.2-1.3) mg/dL AST 21 (14-36) U/L ALT 27 (9-52) U/L Alkaline Phosphatase 82 (38-126) U/L Total Protein 7.7 (6.3-8.2) g/dL Albumin 4.4 (3.5-5.0) g/dL Influenza Type A RNA (Not Detectd) Influenza Type B (PCR) (Not Detectd) 12/09/17 Range/Units 16:41 WBC (3.8-10.6) k/uL RBC (3.80-5.40) m/uL Hgb (11.4-16.0) gm/dL Hct (34.0-46.0) % MCV (80.0-100.0) fL MCH (25.0-35.0) pg MCHC (31.0-37.0) g/dL RDW (11.5-15.5) % Plt Count (150-450) k/uL Neutrophils % % Lymphocytes % % Monocytes % % Eosinophils % % Basophils % % Neutrophils # (1.3-7.7) k/uL Lymphocytes # (1.0-4.8) k/uL Monocytes # (0-1.0) k/uL Eosinophils # (0-0.7) k/uL Basophils # (0-0.2) k/uL Anisocytosis D-Dimer (<0.60) mg/L FEU Sodium (137-145) mmol/L Potassium (3.5-5.1) mmol/L Chloride (98-107) mmol/L Carbon Dioxide (22-30) mmol/L Anion Gap mmol/L BUN (7-17) mg/dL Creatinine (0.52-1.04) mg/dL Est GFR (CKD-EPI)AfAm (>60 ml/min/1.73 sqM) Est GFR (CKD-EPI)NonAf (>60 ml/min/1.73 sqM) Glucose (74-99) mg/dL Calcium (8.4-10.2) mg/dL Total Bilirubin (0.2-1.3) mg/dL AST (14-36) U/L ALT (9-52) U/L Alkaline Phosphatase (38-126) U/L Total Protein (6.3-8.2) g/dL Albumin (3.5-5.0) g/dL Influenza Type A RNA Not Detected (Not Detectd) Influenza Type B (PCR) Not Detected (Not Detectd) - Radiology Data Radiology results: report reviewed, image reviewed Disposition Clinical Impression: Pleurisy, Upper respiratory infection Disposition: HOME SELF-CARE Condition: Stable Instructions: Upper Respiratory Infection (ED) Additional Instructions: Please use medication as discussed. Please follow up with family doctor if symptoms have not improved over the next two days. Please return to the emergency room if your symptoms increase or worsen or for any other concerns. Prescriptions: predniSONE 50 mg PO DAILY #5 tab Referrals: Yung Cotto MD [Primary Care Provider] - 1-2 days Time of Disposition: 18:13
--- NOTE | 2017-12-09 18:04 | XR ---
EXAMINATION TYPE: XR chest 2V DATE OF EXAM: 12/09/2017 COMPARISON: 07/04/2017 HISTORY: Chest pain TECHNIQUE: Frontal and lateral views of the chest are obtained. FINDINGS: There is no focal air space opacity. No evidence for pneumothorax. No pleural effusion. The cardiac silhouette size is within normal limits. The osseous structures are grossly intact. IMPRESSION: 1. No acute cardiopulmonary process.
[2017-12-09 18:21] VITALS: BP 118/70; PULSE 69; RESP 16; TEMP 98
== END 2017-12-09 18:20 | disposition home or self-care (01) ==
LOC: EC 15:27
DX: J06.9 Acute upper respiratory infection, unspecified (principal); R09.1 Pleurisy; F17.200 Nicotine dependence, unspecified, uncomplicated; Z91.048 Other nonmedicinal substance allergy status
CPT/HCPCS: 36415; 85379; 80053; 85025; 87502; 71046; 99284; 96374; 96361; J1885

== ENCOUNTER 2024-09-10 17:45 | Emergency (ER) | payer BC ==
[2024-09-10] MEDS: KETOROLAC 15 MG/ML 1 ML VIAL IM STA (19:17)
[2024-09-10] MEDS: ACETAMINOPHEN TAB 500 MG TAB PO STA (19:22)
--- NOTE | 2024-09-10 19:28 | XR ---
EXAMINATION TYPE: XR knee complete RT DATE OF EXAM: 09/10/2024 7:08 PM COMPARISON: None CLINICAL INDICATION: Female, 44 years old with history of knee pain; , pain TECHNIQUE: XR knee complete RT 3 views submitted. FINDINGS: No evidence of any acute osseous pathology, soft tissue swelling, or joint effusion is no yeimi. Tricompartmental osteophyte formation involving the femoral condyles, tibial plateau and patella . Mild joint space narrowing. A fabella is present. IMPRESSION: 1. No acute osseous pathology. 2. Mild tricompartmental osteoarthritic changes. [facility], , 09/10/2024 7:25 PM
[2024-09-10 19:32] VITALS: RESP 14
--- NOTE | 2024-09-10 20:07 | ED ---
General Adult HPI - General Chief complaint: Extremity Injury, Lower Stated complaint: R knee pain Time Seen by Provider: 09/10/24 18:45 Source: patient, RN notes reviewed, old records reviewed Mode of arrival: ambulatory Limitations: no limitations - History of Present Illness Initial comments: Patient is a 44-year-old female presents emergency department complaining of right knee pain. Is atraumatic. States that she was sitting down to go to the bathroom when she felt a pop in her right knee. Is difficult to move it and bear weight on it. No known injury to it. Denies any sensory deficits. Is able to hold it in full extension against gravity however it is painful with flexion and extension. Denies any known history of injury to the right knee. No significant past medical history. Presents for further evaluation at this time. No other injuries from the incident. - Related Data Home Medications Medication Instructions Recorded Confirmed HYDROcodone/APAP 10-325MG [[place] 1 tab PO Q6H PRN 07/04/17 12/09/17 10-325] Naproxen [Naprosyn] 500 mg PO Q12HR PRN 12/09/17 12/09/17 Previous Rx's Medication Instructions Recorded Ibuprofen [Motrin] 800 mg PO Q6HR PRN #20 tab 11/23/16 predniSONE 50 mg PO DAILY #5 tab 12/09/17 Cyclobenzaprine [Flexeril] 5 mg PO TID PRN 7 Days #21 tablet 09/10/24 Allergies Allergy/AdvReac Type Severity Reaction Status Date / Time paper tape Allergy Unknown Rash/Hives Uncoded 09/10/24 18:10 Review of Systems ROS Statement: Those systems with pertinent positive or pertinent negative responses have been documented in the HPI. Review of Systems: CONST: Denies fever EYES: Denies blurry vision ENT: Denies nasal congestion C/V: Denies Chest pain RESP: Denies shortness of breath GI: Denies abdominal pain : Denies dysuria SKIN: Denies rash. MSK: Endorses right knee pain NEURO: Denies headache ROS Other: All systems not noted in ROS Statement are negative. Past Medical History Past Medical History: No Reported History Additional Past Medical History / Comment(s): pleurisy History of Any Multi-Drug Resistant Organisms: None Reported Past Surgical History: Breast Surgery, Orthopedic Surgery, Tubal Ligation Additional Past Surgical History / Comment(s): rt knee sx for fc knee cap Past Anesthesia/Blood Transfusion Reactions: Motion Sickness Past Psychological History: No Psychological Hx Reported Smoking Status: Current every day smoker Past Alcohol Use History: Daily Past Drug Use History: None Reported - Past Family History Father Family Medical History: No Reported History Mother Family Medical History: Cancer, Hypertension Additional Family Medical History / Comment(s): breast cancer General Exam - General Exam Comments Initial Comments: General: Appears in no acute distress. HEAD: Normal with no signs of head trauma. EYES: EOMI. ENT: Hearing grossly intact. RESPIRATORY: No respiratory distress. C/V: Regular rate and rhythm. ABD: Abdomen is nondistended. EXT: Endorses right knee pain. Tenderness to palpation over the right kneecap as well as in the medial joint line. Some edema. No obvious deformity. Patient can hold right lower extremity up against gravity. Difficulty with flexion extension of the right knee secondary to pain. No other obvious injury. Neurovasc intact throughout. SKIN: No rashes or lesions observed on exposed skin. NEURO: Alert and oriented. Limitations: no limitations Course Vital Signs 09/10/24 09/10/24 18:10 19:26 Temperature 98.3 F 98.5 F Pulse Rate 91 72 Respiratory 20 14 Rate Blood Pressure 124/89 127/87 O2 Sat by Pulse 100 100 Oximetry Medical Decision Making - Medical Decision Making Was pt. sent in by a medical professional or institution (KESHIA Julien, APPLIANCE TECHNICIAN, urgent care, hospital, or fci...) When possible be specific @ -No Did you speak to anyone other than the patient for history (EMS, parent, family, police, friend...)? What history was obtained from this source @ -No Did you review nursing and triage notes (agree or disagree)? Why? @ -I reviewed and agree with nursing and triage notes Were old charts reviewed (outside hosp., previous admission, EMS record, old EK G, old radiological studies, urgent care reports/EKG's, fci records)? Report findings @ -No old charts were reviewed Differential Diagnosis (chest pain, altered mental status, abdominal pain women, abdominal pain men, vaginal bleeding, weakness, fever, dyspnea, syncope, headache, dizziness, GI bleed, back pain, seizure, CVA, palpatations, mental health, musculoskeletal)? @ -Differential Musculoskeletal Muscular strain, contusion, ligament sprain, fracture, arthritis, septic arthritis, bursitis, cellulitis, muscle spasm, nerve compression, DVT, arterial occlusion, herpes zoster, electrolyte abnormality, tumor.... This is not meant to be in all inclusive list EKG interpreted by me (3pts min.). @ -None done X-rays interpreted by me (1pt min.). @ -Right knee x-ray reveals no obvious acute traumatic injury. Arthritis present. CT interpreted by me (1pt min.). @ -None done U/S interpreted by me (1pt. min.). @ -None done What testing was considered but not performed or refused? (CT, X-rays, U/S, labs)? Why? @ -None What meds were considered but not given or refused? Why? @ -None Did you discuss the management of the patient with other professionals (professionals i.e. , PA, APPLIANCE TECHNICIAN, lab, RT, psych nurse, renal social worker, actuarial intern, teacher, preventive medicine officer, case aide)? Give summary @ -No Was smoking cessation discussed for >3mins.? @ -No Was critical care preformed (if so, how long)? @ -No Were there social determinants of health that impacted care today? How? (Homelessness, low income, unemployed, alcoholism, drug addiction, transportation, low edu. Level, literacy, decrease access to med. care, assisted, rehab)? @ -No Was there de-escalation of care discussed even if they declined (Discuss DNR or withdrawal of care, Hospice)? DNR status @ -No What co-morbidities impacted this encounter? (DM, HTN, Smoking, COPD, CAD, Cancer, CVA, ARF, Chemo, Hep., AIDS, mental health diagnosis, sleep apnea, morbid obesity)? @ -None Was patient admitted / discharged? Hospital course, mention meds given and route, prescriptions, significant lab abnormalities, going to OR and other pertinent info. @ -Patient presents with atraumatic right knee pain. We will obtain x-ray. Vitals within acceptable limits. Exam other than for pain of the right knee is unremarkable. We will obtain x-ray and patient will be administered analgesia medications. X-ray revealed no obvious acute traumatic injury. After the patient. Diagnosis is right knee sprain and discussed she should follow-up with orthopedics outpatient for possible further imaging and evaluation. She will be given a knee immobilizer as well as crutches. Patient was in agreement this plan. She will be discharged home with a prescription for Tylenol 3 starter pack as well as Flexeril. I instructed the patient to follow up with their PCP in the next 1-3 days. I provided contact information for follow up with orthopedics. I explained that the patient should return to the emergency department if they experience any worsening symptoms. Strict return precautions were discussed with the patient. The patient expressed understanding of these instructions. I answered all questions that the patient had. The patient was discharged home in good condition with their prescriptions and follow up information. Undiagnosed new problem with uncertain prognosis? @ -No Drug Therapy requiring intensive monitoring for toxicity (Heparin, Nitro, Insulin, Cardizem)? @ -No Were any procedures done? @ -No Diagnosis/symptom? @ -Right knee sprain Acute, or Chronic, or Acute on Chronic? @ -Acute Uncomplicated (without systemic symptoms) or Complicated (systemic symptoms)? @ -Uncomplicated Side effects of treatment? @ -No Exacerbation, Progression, or Severe Exacerbation? @ -No Poses a threat to life or bodily function? How? (Chest pain, [place], [place], pneumonia, PE, COPD, DKA, ARF, appy, cholecystitis, CVA, Diverticulitis, Homicidal, Suicidal, threat to staff... and all critical care pts) @ -Unlikely Disposition Clinical Impression: Right knee sprain Disposition: HOME SELF-CARE Condition: Good Instructions (If sedation given, give patient instructions): Knee Sprain (ED) Prescriptions: Cyclobenzaprine [Flexeril] 5 mg PO TID PRN 7 Days #21 tablet PRN Reason: Pain Is patient prescribed a controlled substance at d/c from ED?: No Referrals: Yung Cotto MD [Primary Care Provider] - 1-2 days Mohan Regan DO [Doctor of Osteopathic Medicine] - 1-2 days Time of Disposition: 20:00
[2024-09-10] MEDS: ACET/COD 300 MG/30 MG STARTER PACK 6 TAB BTL PO STA (20:19)
[2024-09-10 20:24] VITALS: BP 123/79; PULSE 71; TEMP 98.6
== END 2024-09-10 20:28 | disposition home or self-care (01) ==
LOC: EC 17:45
DX: S83.91XA Sprain of unspecified site of right knee, initial encounter (principal); F17.200 Nicotine dependence, unspecified, uncomplicated; Z91.048 Other nonmedicinal substance allergy status; X58.XXXA Exposure to other specified factors, initial encounter
CPT/HCPCS: 73562; 99284; 96372; L1830; J1885

== ENCOUNTER → 2024-09-27 | Outpatient (CLI) | payer BC ==
--- NOTE | 2024-09-27 12:21 | MR ---
EXAMINATION TYPE: MR knee RT wo con DATE OF EXAM: 09/27/2024 11:45 AM COMPARISON: Radiograph 09/10/2024 CLINICAL INDICATION: Female, 44 years old with history of M25.561 PAIN IN RIGHT KNEE, Rt knee pain TECHNIQUE: Multiplanar, multisequence imaging of the right knee is performed without IV contrast. FINDINGS: ACL, PCL, and LCL complex are intact. There is pronounced edema on either side of the MCL. Partial tear which involves the anterior fibers. Both medial and lateral menisci are intact. Mild cartilage fissuring along the lateral patellar facet. Patellofemoral compartment articular carti aspen volume is otherwise maintained. Extensor mechanism is intact. Scattered soft tissue swelling. Trace, physiologic joint effusion. There is a focal bone bruise along the posterior third aspect of the lateral femoral condyle. No disc rete fracture is seen. Normal popliteal artery anatomy. Generalized muscle atrophy. No suspicious bone marrow replacement. IMPRESSION: 1. Grade 2 MCL sprain with partial tear of the anterior fibers. 2. Focal bone bruise posterior third aspect of the lateral femoral condyle. 3. Mild focal cartilage fissuring along the lateral patellar facet relating to early osteoarthrosis. [facility], , 09/27/2024 12:19 PM
== END | disposition home or self-care (01) ==
LOC: RADMRIMAIN 11:15
PROVIDERS: ATTEND Orthopaedic Surgery
DX: S83.411A Sprain of medial collateral ligament of right knee, initial encounter (principal); M17.11 Unilateral primary osteoarthritis, right knee